=== PATIENT | male | born 1960 | race African-American/Black ===

== ENCOUNTER 2017-05-28 03:24 | Emergency (ER) | payer SELFPAY ==
[~2017-05-28] VITALS: Ht 175.3 cm; Wt 77.1 kg
[2017-05-28] MEDS ORDERED: Tetanus/Diptheria/Pertussis Vaccine 0.5ml Syr IM ONE (03:30)
[2017-05-28] MEDS ORDERED: Morphine Sulfate 2mg/ml Inj IVP ONE ×2 (03:30→04:15)
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
[2017-05-28 03:44] VITALS: BP 127/96
[2017-05-28 03:53] LABS: BASOPHILS % (AUTO) 1.1 % (0.0-2.0); EOSINOPHILS % (AUTO) 8.6 % (0.0-3.0); MEAN CORPUSCULAR HEMOGLOBIN 31.9 PG (27.0-31.0); MEAN CORPUSCULAR HGB CONC 33.9 G/DL (32.0-36.0); MEAN CORPUSCULAR VOLUME 94 FL (80-99); MEAN PLATELET VOLUME 7.1 FL (6.5-10.1); MONOCYTES % (AUTO) 6.5 % (1.0-10.0); NEUTROPHILS % (AUTO) 47.7 % (45.0-75.0); PLATELET COUNT 356 K/UL (150-450); RED BLOOD COUNT 4.81 M/UL (4.70-6.10); RED CELL DISTRIBUTION WIDTH 10.7 % (11.6-14.8); WHITE BLOOD COUNT 10.7 K/UL (4.8-10.8)
[2017-05-28 04:12] LABS: ALANINE AMINOTRANSFERASE 23 U/L (12-78); ALCOHOL 158 mg/dL; ANION GAP 7 mmol/L (5-15); ASPARTATE AMINO TRANSFERASE 23 U/L (15-37); CALCIUM 8.9 MG/DL (8.5-10.1); CARBON DIOXIDE 30 MMOL/L (21-32); CHLORIDE 98 MMOL/L (98-107); CREATININE 0.8 MG/DL (0.55-1.30); GLOMERULAR FILTRATION RATE > 60 mL/min (>60); SODIUM 134 MMOL/L (136-145); TOTAL PROTEIN 7.3 G/DL (6.4-8.2)
[2017-05-28] MEDS ORDERED: Morphine Sulfate 4mg/ml Inj IVP ONE (04:15)
[2017-05-28 04:25] VITALS: BP 135/89
[2017-05-28 05:39] VITALS: BP 163/94
[2017-05-28 05:40] VITALS: BP 163/94
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
--- NOTE | 2017-05-28 11:54 | Diagnostic Imaging Report ---
Indication: Shortness of breath Technique: One view of the chest Comparison: none Findings: Lungs and pleural spaces are clear. Heart size is normal. Impression: No acute process
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
== END 2017-05-28 05:51 | disposition short-term general hospital (02) ==
LOC: EDBD 03:24 → EMR 03:30
DX: S02.609A Fracture of mandible, unspecified, initial encounter for closed fracture (principal); S02.2XXA Fracture of nasal bones, initial encounter for closed fracture; S01.81XA Laceration without foreign body of other part of head, initial encounter; Y04.2XXA Assault by strike against or bumped into by another person, initial encounter; Y92.414 Local residential or business street as the place of occurrence of the external cause; Z23 Encounter for immunization; Z72.89 Other problems related to lifestyle
CPT/HCPCS: 12013; 36415; 70450; 70486; 71010; 72170; 80053; 85025; 90471; 90715; 96374; 96376; 99285; G0480; J2270; 80329